=== PATIENT | male | born 1995 | race African-American/Black ===

== ENCOUNTER 2022-04-12 20:19 | Emergency (ER) | payer OTHER ==
[2022-04-12 20:33] VITALS: BP 111/71; PULSE 99; RESP 18; TEMP 98.2; BMI 22.0
[2022-04-12] MEDS ORDERED: SODIUM CHLORIDE 0.9% 500 ML INFUS.BAG IV ONE (21:38)
[2022-04-12] MEDS ORDERED: ACETAMINOPHEN 1000 MG/100 ML BAG IVPB ONE (21:38)
[2022-04-12 21:55] LABS: BASO % 0.9 % (0-2.0); HEMATOCRIT 41.9 % (35.4-49); HEMOGLOBIN 13.8 GM/dL (11.7-16.9); LYMPH % 26.8 % (8-40); MCH 26.9 pg (25.7-33.7); MCHC 32.8 g/dl (32.0-35.9); MEAN PLT VOLUME 9.4 fl (7.5-11.1); MONO % 6.4 % (3.8-10.2); NEUT % 62.9 % (42.8-82.8); PLATELET COUNT 224 10^3/uL (134-434); RBC 5.11 M/mm3 (4.00-5.60); WHITE BLOOD COUNT 5.1 K/mm3 (4.0-10.0)
[2022-04-12 21:57] LABS: EPI CELLS 2 /uL (0-25.1); HYALINE CASTS 0 /uL (0-3.1); URINE APPEARANCE CLEAR; URINE BACTERIA 4 /uL (0-1359); URINE BILIRUBIN NEGATIVE (NEGATIVE); URINE COLOR YELLOW; URINE GLUCOSE (UA) NEGATIVE (NEGATIVE); URINE KETONE NEGATIVE (NEGATIVE); URINE LEUK ESTERASE NEGATIVE (NEGATIVE); URINE NITRITE NEGATIVE (NEGATIVE); URINE PROTEIN 1+ (NEGATIVE); URINE RBC 4 /uL (0-23.9); URINE WBC 2 /uL (0-25.8)
[2022-04-12] MEDS ORDERED: ACETAMINOPHEN INJECTION 100 ML IVPB ONE (22:08)
[2022-04-12 22:31] LABS: CALCIUM 9.3 mg/dL (8.5-10.1)
[2022-04-12 22:32] LABS: ALBUMIN 4.2 g/dl (3.4-5.0); BLOOD UREA NITROGEN 11.4 mg/dL (7-18)
[2022-04-12 22:36] LABS: TOT PROT 7.4 g/dl (6.4-8.2)
[2022-04-12 22:58] LABS: BILIRUBIN,TOTAL 0.7 mg/dL (0.2-1)
== END 2022-04-13 00:52 | disposition home or self-care (01) ==
LOC: JER 20:19
PROC: 3E033GC Introduction of Other Therapeutic Substance into Peripheral Vein, Percutaneous Approach (ICD-10-PCS; principal; 2022-04-12)
DX: R10.31 Right lower quadrant pain (principal); K59.09 Other constipation
CPT/HCPCS: 36415; 74177-TC; 76870-TC; 80053; 81003; 83735; 85025; 87086; 99285-25; Q9967